=== PATIENT | male | born 1950 | race Caucasian/White ===

== ENCOUNTER 2024-02-13 12:51 | Emergency (ER) | payer MEDICARE, BC ==
[2024-02-13 16:14] LABS: BASOPHILS ABSOLUTE AUTO 0.05 K/uL (0.00-0.10); BASOPHILS PERCENT AUTO 0.9 % (0.1-1.3); EOSINOPHILS ABSOLUTE AUTO 0.29 K/uL (0.00-0.40); EOSINOPHILS PERCENT AUTO 5.1 % (0.0-5.4); HEMATOCRIT 43.6 % (38.4-49.7); HEMOGLOBIN 14.7 g/dL (12.9-16.9); IMMATURE GRAN ABSOLUTE AUTO 0.01 K/uL (0.00-0.23); IMMATURE GRAN PERCENT AUTO 0.2 % (0.0-0.7); LYMPHOCYTES ABSOLUTE AUTO 1.32 K/uL (0.8-3.3); LYMPHOCYTES PERCENT AUTO 23.2 % (11.4-47.7); MEAN CORPUSCULAR HEMOGLOBIN 30.9 pg (31.6-35.5); MEAN CORPUSCULAR HGB CONC 33.7 g/dL (31.6-35.5); MEAN CORPUSCULAR VOLUME 91.8 fL (81.4-99.0); MONOCYTES ABSOLUTE AUTO 0.55 K/uL (0.20-0.90); MONOCYTES PERCENT AUTO 9.6 % (3.3-12.6); NEUTROPHILS ABSOLUTE AUTO 3.48 K/uL (1.0-7.6); PLATELET COUNT,PLT 203 K/uL (130-375); RED BLOOD CELL COUNT 4.75 M/uL (4.14-5.76); WHITE BLOOD CELL COUNT,WBC 5.7 K/uL (3.2-11.0)
[2024-02-13 16:30] LABS: PROTHROMBIN TIME 10.1 sec (9.2-10.6)
[2024-02-13] MEDS: Sodium Chloride 0.9% 10 ML Syringe FLUSH PRN (16:30)
[2024-02-13] MEDS: Iopamidol 755 Mg/ML 100 ML Bottle IV SCH (16:30)
[2024-02-13] MEDS: Sodium Chloride 0.9% 80 ML IV SCH (16:30)
[2024-02-13 16:39] LABS: ALANINE AMINOTRANSFERASE,ALT 27 U/L (12-78); ALBUMIN 3.5 g/dL (3.4-5.0); ALKALINE PHOSPHATASE 72 U/L (46-116); ANION GAP 6.5 mmol/L (5.0-14.0); ASPARTATE AMNIOTRANSFERASE,AST 29 U/L (15-37); BILIRUBIN TOTAL 0.3 mg/dL (0.2-1.0); BLOOD UREA NITROGEN,BUN 24 mg/dL (7-18); CALCIUM 9.3 mg/dL (8.5-10.1); CARBON DIOXIDE,CO2 31 mmol/L (21-32); CHLORIDE,CL 105 mmol/L (100-108); CREATININE 1.3 mg/dL (0.8-1.3); ESTIMATED GFR 57 mL/min (>60); GLUCOSE RANDOM 96 mg/dL (74-106); POTASSIUM,K 4.3 mmol/L (3.6-5.2); PROTEIN TOTAL,TP 7.1 g/dL (6.4-8.2); SODIUM,NA 142 mmol/L (140-148)
== END 2024-02-13 18:01 | disposition home or self-care (01) ==
LOC: JP.ED 12:51
DX: G45.9 Transient cerebral ischemic attack, unspecified (principal); Z79.82 Long term (current) use of aspirin; Z88.1 Allergy status to other antibiotic agents
CPT/HCPCS: 36415; 70450; 70496; 70498; 80053; 85025; 85610; 99284; 99285; J3490; Q9967